=== PATIENT | female | born 1955 | race Caucasian/White ===

== ENCOUNTER → 2018-11-13 | Outpatient (REF) | payer OTHER ==
[2018-11-13 11:06] LABS: HEMATOCRIT 42.1 % (37.0-47.0); HEMOGLOBIN 13.1 g/dl (12.0-16.0); IMMATURE GRANULOCYTES 0.4 % (0.0-5.0); MEAN CELL VOLUME 91.7 fL CALC (80.0-100.0); MEAN CORPUSCULAR HGB 28.5 pG CALC (26.0-32.0); MEAN CORPUSCULAR HGB CONC 31.1 g/L CALC (32.0-36.0); NEUT# 6.21 thou/uL (2.00-7.15); RED BLOOD COUNT 4.59 mill/uL (4.20-5.60)
[2018-11-13 12:17] LABS: ALBUMIN 3.7 g/dL (3.2-5.0); ALKALINE PHOSPHATASE 102 u/l (38-126); ANION GAP 12 (6-22 (CALC)); BILIRUBIN, TOTAL 0.6 mg/dL (0.0-1.4); BUN 11 mg/dL (8-23); BUN/CREATININE RATIO 14 (12-20 (CALC)); CALCULATED LDLCHOLESTEROL 79 mg/dL (62-129 (CALC)); CARBON DIOXIDE 28 mmol/l (22-30); CHLORIDE 105 mmol/l (95-108); CHOLESTEROL HDL RATIO 3.1 (<4.4 (CALC)); CREATININE 0.8 mg/dL (0.5-1.0); GFR > 60 ML/MIN (>=60 (CALC)); GFR FOR AFR.AMER. > 60 ML/MIN (>=60 (CALC)); HDL CHOLESTEROL 51 mg/dL (>=40); POTASSIUM 4.1 mmol/l (3.5-5.1); SGOT/AST 15 u/l (9-36); SODIUM 141 mmol/l (137-146); TOTAL CHOLESTEROL 156 mg/dl (0-199); TOTAL PROTEIN 6.2 g/dL (6.3-8.2); TOTAL TRIGLYCERIDES 135 mg/dl (30-149); VLDL CHOLESTROL 27 mg/dl (1-41 (CALC))
== END | disposition home or self-care (01) | DRG 642 ==
LOC: LAB 10:04
PROVIDERS: ATTEND Nurse Practitioner
DX: E78.2 Mixed hyperlipidemia (principal); I10 Essential (primary) hypertension

== ENCOUNTER → 2018-11-21 | Outpatient (REF) | payer OTHER | END | disposition home or self-care (01) | DRG 951 | LOC: MAMMO 13:14 | PROVIDERS: ATTEND Nurse Practitioner | DX: Z12.31 Encounter for screening mammogram for malignant neoplasm of breast (principal) ==

== ENCOUNTER 2019-03-20 00:04 | Emergency (ER) | payer OTHER ==
[~2019-03-20] VITALS: Ht 162.6 cm; Wt 100.0 kg
[2019-03-20] MEDS ORDERED: CARVEDILOL3.125 MG PO (00:21)
[2019-03-20] MEDS ORDERED: PLAVIX75 MG PO (00:21)
[2019-03-20] MEDS ORDERED: ASPIRIN CHEWABL81 MG PO (00:21)
[2019-03-20] MEDS ORDERED: DITROPAN PO (00:21)
[2019-03-20] MEDS ORDERED: LEXAPRO10 MG PO (00:22)
[2019-03-20] MEDS ORDERED: FAMOTIDINE20 M1 PO (00:22)
[2019-03-20] MEDS ORDERED: ATORVASTATIN CA80 MG PO (00:22)
[2019-03-20] MEDS ORDERED: SINGULAIR10 MG PO (00:22)
[2019-03-20] MEDS ORDERED: PREDNISONE50 MG PO (01:14)
[2019-03-20] MEDS ORDERED: EPIPEN 2-P0.3 MG/0.3 SC (01:18)
[2019-03-20 01:20] VITALS: BP 155/65
== END 2019-03-20 01:25 | disposition home or self-care (01) | DRG 923 ==
LOC: ED 00:04
DX: T78.1XXA Other adverse food reactions, not elsewhere classified, initial encounter (principal); I25.2 Old myocardial infarction; L29.9 Pruritus, unspecified; X58.XXXA Exposure to other specified factors, initial encounter; Z95.5 Presence of coronary angioplasty implant and graft

== ENCOUNTER 2019-05-26 16:04 | Emergency (ER) | payer OTHER ==
[~2019-05-26] VITALS: Ht 162.6 cm; Wt 104.5 kg
[~2019-05-26 16:04] MED LIST: ASPIRIN CHEWABL81 MG PO; ATORVASTATIN CA80 MG PO; CARVEDILOL3.125 MG PO; DITROPAN PO; EPIPEN 2-P0.3 MG/0.3 SC; FAMOTIDINE20 M1 PO; LEXAPRO10 MG PO; PLAVIX75 MG PO; PREDNISONE50 MG PO; SINGULAIR10 MG PO
[2019-05-26 17:11] LABS: HEMATOCRIT 42.3 % (37.0-47.0); HEMOGLOBIN 13.6 g/dl (12.0-16.0); IMMATURE GRANULOCYTES 1.1 % (0.0-5.0); MEAN CELL VOLUME 88.5 fL CALC (80.0-100.0); MEAN CORPUSCULAR HGB 28.5 pG CALC (26.0-32.0); MEAN CORPUSCULAR HGB CONC 32.2 g/L CALC (32.0-36.0); NEUT# 18.87 thou/uL (2.00-7.15); RED BLOOD COUNT 4.78 mill/uL (4.20-5.60)
[2019-05-26 17:24] LABS: ALBUMIN 4.2 g/dL (3.2-5.0); ALKALINE PHOSPHATASE 108 u/l (38-126); ANION GAP 15 (6-22 (CALC)); BILIRUBIN, TOTAL 0.5 mg/dL (0.0-1.4); BUN 16 mg/dL (8-23); BUN/CREATININE RATIO 20 (12-20 (CALC)); CHLORIDE 107 mmol/l (95-108); CREATININE 0.8 mg/dL (0.5-1.0); GFR > 60 ML/MIN (>=60 (CALC)); GFR FOR AFR.AMER. > 60 ML/MIN (>=60 (CALC)); POTASSIUM 4.4 mmol/l (3.5-5.1); SGOT/AST 16 u/l (9-36); SODIUM 141 mmol/l (137-146); TOTAL PROTEIN 7.1 g/dL (6.3-8.2)
[2019-05-26 17:28] LABS: CARBON DIOXIDE 23 mmol/l (22-30)
[2019-05-26 17:30] VITALS: BP 177/91
[2019-05-26] MEDS ORDERED: PROAIR HFA IN (17:56)
[2019-05-26] MEDS ORDERED: PEPCID20 MG PO (17:58)
[2019-05-26] MEDS ORDERED: BENADRYL 50MG C50 MG PO (17:58)
[2019-05-26] MEDS ORDERED: MEDDOSEPAK PO (17:58)
[2019-05-26] MEDS ORDERED: EPIPEN 2-P0.3 MG/0.3 SC (18:04)
== END 2019-05-26 18:30 | disposition home or self-care (01) | DRG 916 ==
LOC: ED 16:04
PROVIDERS: Emergency Medicine
DX: T78.40XA Allergy, unspecified, initial encounter (principal); X58.XXXA Exposure to other specified factors, initial encounter; L29.9 Pruritus, unspecified